=== PATIENT | female | born 1985 | race Caucasian/White ===

== ENCOUNTER 2017-03-24 11:57 | Emergency (ER) | payer OTHER ==
[2017-03-24 12:05] VITALS: TEMP 98.2; BMI 21.2
[2017-03-24] MEDS ORDERED: KETOROLAC TROMETHAMINE 60 MG/2 ML VIAL IM ONE (13:10)
[2017-03-24] MEDS ORDERED: KETOROLAC TROMETHAMINE 60 MG/2 ML VIAL ONE (13:13)
--- NOTE | 2017-03-24 13:37 | PDOC ---
History of Present Illness - General Chief Complaint: Headache Stated Complaint: LT KNEE PAIN, HEADACHE Time Seen by Provider: 03/24/17 12:53 History Source: Patient Exam Limitations: No Limitations - History of Present Illness Initial Comments: CHIEF COMPLAINT: 31 y/o afebrile female with PMH infertility c/o headache and left knee pain. HISTORY OF PRESENT ILLNESS: The patient states she's had atraumatic left knee pain since yesterday and she states it feels like something is loose "inside" the middle of her left knee. She also admits to headache since yesterday. She has taken motrin and it's not as bad as it was this morning. She does admit to getting headaches more often recently and admits for the past few months she's been on a few different infertility treatments. She denies worst headache of life, f/c, n/v/d, neck pain, changes in vision/hearing, cough, CP, SOB, abd pain , dizziness, numbness/tingling in extremities. Vital signs on arrival are notable for pulse of 100. REVIEW OF SYSTEMS: GENERAL/CONSTITUTIONAL: No fever/chills. No weakness. No weight change. HEAD, EYES, EARS, NOSE AND THROAT: No change in vision. No ear pain or discharge. No sore throat. CARDIOVASCULAR: No chest pain or shortness of breath. RESPIRATORY: No cough, wheezing, or hemoptysis. GASTROINTESTINAL: no abd pain, nausea, vomiting, diarrhea. GENITOURINARY: No dysuria, frequency, or change in urination. MUSCULOSKELETAL: +left knee pain. No neck or back pain. SKIN: No rash or easy bruising. NEUROLOGIC: +headache. No vertigo, loss of consciousness, or loss of sensation. PHYSICAL EXAM: VITAL_SIGNS: within normal limits GENERAL_APPEARANCE: alert, cooperative, no obvious discomfort. The patient is ambulatory with normal gait. HEENT: No photophobia. MENTAL_STATUS: speech clear, oriented X 3, responds appropriately to questions. NEURO: motor intact and sensory intact in injured extremity. Normal finger to nose. EXTREMITIES: Left knee without erythema, edema, warmth. Minimal pain elicited with palpation of left lateral knee joint line. Some crepitus with movement of left patella without obvious deformities. SKIN: warm, dry, good color. Past History - Past Medical History Allergies/Adverse Reactions: Allergies Allergy/AdvReac Type Severity Reaction Status Date / Time No Known Allergies Allergy Verified 03/24/17 12:02 Home Medications: Ambulatory Orders Metformin HCl 500 mg PO BID 03/24/17 Other medical history: none - Psycho/Social/Smoking Cessation Hx Anxiety: No Suicidal Ideation: No Smoking History: Never smoked Have you smoked in the past 12 months: No Information on smoking cessation initiated: No Hx Alcohol Use: No Drug/Substance Use Hx: No Substance Use Type: None *Physical Exam - Vital Signs Last Vital Signs Temp Pulse Resp BP Pulse Ox 98.2 F 100 H 18 114/69 100 03/24/17 12:03 03/24/17 12:03 03/24/17 12:03 03/24/17 12:03 03/24/17 12:03 Medical Decision Making - Medical Decision Making A/P: 31 y/o female with atraumatic left knee pain and headache. Plan is as follows: 1. Xray right knee 2. IM Toradol Xray right knee IMPRESSION: No acute pathology. Suggested she continue to use the knee brace she's been using if it provides relief. Pt states she feels better now after Toradol and her vital signs have improved with new HR of 78 bpm. Suggested she f/u with her PCP and with Dr. Arroyo if symptoms continue. Did inform her that her fertility medications can be causing the headaches. Instructed her to return to the ER with any worsening or concerning symptoms. The patient verbalizes understanding of all instructions, has no further questions and is awaiting discharge. *DC/Admit/Observation/Transfer Diagnosis at time of Disposition: Knee pain, left Qualifiers: Chronicity: acute Qualified Code(s): M25.562 - Pain in left knee - Discharge Dispostion Disposition: HOME Condition at time of disposition: Improved - Referrals Referrals: Jus Arroyo MD [Staff Physician] - - Patient Instructions Printed Discharge Instructions: DI for Knee Pain, DI for Headache, How To Perform RICE (Rest, Ice, Compress, Elevate) Additional Instructions: Discharge Instructions: -Use JULIOCESAR bandage for comfort -Follow RICE instructions -Call your doctor and Dr. Arroyo if symptoms continue -Return to the ER with any worsening or concerning symptoms
[2017-03-24 15:06] VITALS: BP 121/58; PULSE 78
== END 2017-03-24 15:09 | disposition home or self-care (01) ==
LOC: JER 11:57
PROC: 3E0233Z Introduction of Anti-inflammatory into Muscle, Percutaneous Approach (ICD-10-PCS; principal; 2017-03-24)
DX: M25.562 Pain in left knee (principal)
CPT/HCPCS: 73560-TC-LT; 96372; 99282-25

== ENCOUNTER 2020-04-09 18:31 | Emergency (ER) | payer OTHER ==
[2020-04-09 18:37] VITALS: BP 117/71; PULSE 78; TEMP 97.8; BMI 21.2
[2020-04-09] MEDS ORDERED: NAPROXEN 500 MG TABLET PO ONE (18:37)
--- NOTE | 2020-04-09 18:37 | PDOC ---
Rapid Medical Evaluation Chief Complaint: Ear Problem Time Seen by Provider: 04/09/20 18:34 Medical Evaluation: Allergies Allergy/AdvReac Type Severity Reaction Status Date / Time No Known Allergies Allergy Verified 03/24/17 12:02 04/09/20 18:35 I have performed a brief in-person evaluation of this patient. The patient presents with a chief complaint of: b/l ear pain x 1 week. Denies fevers. Denies any other symptoms Pertinent physical exam findings: moderate TTP to b/l TMJ worsening with opening wide of mouth Lt > Rt I have ordered the following: naproxen The patient will proceed to the ED for further evaluation. Discharge Disposition - Diagnosis TMJ arthralgia Qualifiers: Laterality: bilateral Qualified Code(s): M26.623 - Arthralgia of bilateral temporomandibular joint - Discharge Dispostion Condition at time of disposition: Stable - Referrals - Patient Instructions - Post Discharge Activity
[2020-04-09] MEDS ORDERED: NAPROXEN 500 MG TABLET ONE (19:34)
--- NOTE | 2020-04-09 19:35 | PDOC ---
History of Present Illness - General Chief Complaint: Ear Problem Stated Complaint: BILATERAL EAR PAIN Time Seen by Provider: 04/09/20 18:34 - History of Present Illness Initial Comments: 04/09/20 19:32 34-year-old female with a past medical history of PCOS presents for evaluation of bilateral ear pain x1 week without systemic symptoms Past History - Medical History Allergies/Adverse Reactions: Allergies Allergy/AdvReac Type Severity Reaction Status Date / Time No Known Allergies Allergy Verified 03/24/17 12:02 Home Medications: Ambulatory Orders metFORMIN HCL [Metformin HCl] 500 mg PO BID 03/24/17 Amox-Tr/K Cl [Augmentin - 875Mg Tablet] 1 tab PO BID #20 tablet 04/09/20 Ciprofloxacin HCl/Dexameth [Ciprodex Otic Suspension] 4 drop AU BID #1 bottle 04/09/20 - Psycho-Social/Smoking History Smoking History: Never smoked Have you smoked in the past 12 months: No Information on smoking cessation initiated: No - Substance Abuse Hx (Audit-C & DAST Scrn) How often the patient has a drink containing alcohol: Never Score: In Men: 4 or > Positive; In Women: 3 or > Positive: 0 Screen Result (Pos requires Nsg. Audit-10AR): Negative In the last yr the pt used illegal drug/Rx for NonMed reason: No Score: Yes response is considered Positive: 0 Screen Result (Positive result requires Nsg. DAST-10): Negative Review of Systems - Review of Systems Constitutional: No: Chills, Diaphoresis, Fever, Night Sweats HEENTM: Yes: Ear Pain, Ear Discharge. No: Tinnitus, Hearing Loss *Physical Exam - Vital Signs Last Vital Signs Temp Pulse Resp BP Pulse Ox 97.8 F 78 18 117/71 99 04/09/20 18:34 04/09/20 18:34 04/09/20 18:34 04/09/20 18:34 04/09/20 18:34 - Physical Exam 04/09/20 19:32 GENERAL: The patient is awake, alert, and fully oriented, in no acute distress. HEAD: Normal with no signs of trauma. EYES: sclera anicteric, conjunctiva clear. ENT: Bilateral tympanic membranes are erythemic and retracted but loss of light reflex there is drainage which appears to be purulent in bilateral ears. There is pain with manipulation of the pinna bilaterally NECK: Normal range of motion LUNGS: Breath sounds equal, clear to auscultation bilaterally. No wheezes, and no crackles. HEART: S1 and S2 without murmur, rub or gallop. ABDOMEN: Soft, nontender, normoactive bowel sounds. No guarding, no rebound. No masses. EXTREMITIES: Normal range of motion, no edema. No clubbing or cyanosis. No cords, erythema, or tenderness. NEUROLOGICAL: Cranial nerves II through XII grossly intact. PSYCH: Normal mood, normal affect. SKIN: Warm, Dry, normal turgor, no rashes or lesions noted. Medical Decision Making - Medical Decision Making 04/09/20 19:33 We will treat for otitis externa and media ENT follow-up I have reviewed the pathophysiology with the patient. They are in agreement with the treatment plan all questions were answered to their satisfaction. Understanding for follow-up without fail was also conveyed to the patient. Again they are in agreement. Discharge - Discharge Information Problems reviewed: Yes Clinical Impression/Diagnosis: Otitis media, Otitis externa Clinical Impression/Diagnosis: (Ruled Out): TMJ arthralgia Condition: Stable Disposition: HOME - Admission No - Additional Discharge Information Prescriptions: Amox-Tr/K Cl [Augmentin - 875Mg Tablet] 1 tab PO BID #20 tablet Ciprofloxacin HCl/Dexameth [Ciprodex Otic Suspension] 4 drop AU BID #1 bottle - Follow up/Referral Referrals: Vj Burch MD [Staff Physician] - - Patient Discharge Instructions Additional Instructions: Return to the emergency room for worsening symptoms and without fail follow-up with ear nose and throat in 1 to 2 days for further evaluation and treatment options. Tylenol and Motrin as directed for pain. Please take and finish all the antibiotics and use the eardrops as directed finish the entire 7-day course of the eardrops and 10-day course to the oral antibiotics. Yogurt with live culture will help if you develop diarrhea from the antibiotics. You should start that today. - Post Discharge Activity
== END 2020-04-09 19:36 | disposition home or self-care (01) ==
LOC: JERFT 18:31
DX: M26.623 Arthralgia of bilateral temporomandibular joint (principal)
CPT/HCPCS: 99283-25